=== PATIENT | male | born 1960 | race African-American/Black ===

== ENCOUNTER 2023-05-02 20:33 | Emergency (ER) | payer OTHER | END 2023-05-02 21:56 | LOC: ER 20:58 | DX: M79.10 Myalgia, unspecified site (principal); V49.49XA Driver injured in collision with other motor vehicles in traffic accident, initial encounter; Y93.89 Activity, other specified; Y92.89 Other specified places as the place of occurrence of the external cause; Y99.8 Other external cause status | CPT/HCPCS: 99283 ==